=== PATIENT | female | born 1980 | race Caucasian/White ===

== ENCOUNTER 2018-04-20 12:40 | Day surgery (SDC) | payer OTHER ==
[~2018-04-20] VITALS: Ht 162.6 cm; Wt 93.5 kg
[~2018-04-20 12:40] MED LIST: BUPIVACAINE/PF-EPI 0.25% 1:200K ONE
[2018-04-20 13:41] LABS: HCG UR SG 1.026 (1.003-1.030)
[2018-04-20 14:10] VITALS: BP 123/84
[2018-04-20] MEDS ORDERED: BUDE10.2 INH (14:10)
[2018-04-20] MEDS ORDERED: SERT100T PO (14:10)
[2018-04-20] MEDS ORDERED: LACTATED RINGERS 1,000 ML IV SCH (14:21)
[2018-04-20] MEDS ORDERED: FENTANYL PF 100 MCG/2ML ONE ×3 (15:01→17:44)
[2018-04-20] MEDS ORDERED: MIDAZOLAM 1 MG/ML, 2ML ONE ×2 (15:01→17:58)
[2018-04-20] MEDS ORDERED: ONDANSETRON 2MG/ML, 2ML ONE (16:36)
[2018-04-20] MEDS ORDERED: DEXAMETHASONE 4 MG/ML, 1ML ONE (16:36)
[2018-04-20] MEDS ORDERED: LACTATED RINGERS 1,000 ML ONE (16:36)
[2018-04-20] MEDS ORDERED: PROPOFOL 10 MG/ML, 20ML ONE (16:36)
[2018-04-20] MEDS ORDERED: SUCCINYLCHOLINE 20 MG/ML, 10ML ONE (16:36)
[2018-04-20] MEDS ORDERED: KETOROLAC 30 MG/1 ML ONE (16:36)
[2018-04-20] MEDS ORDERED: METOCLOPRAMIDE 5 MG/ML, 2ML ONE (16:36)
[2018-04-20] MEDS: FENTANYL PF 100 MCG/2ML IV PRN ×4 (17:25→18:05)
[2018-04-20] MEDS ORDERED: OXYcodone 5 MG/5 ML ORAL.SOL UDC ONE (17:29)
[2018-04-20] MEDS ORDERED: HYDROmorphone 2 MG/ML, 1ML ONE ×2 (17:33→18:17)
[2018-04-20] MEDS: HYDROmorphone 1 MG/ML, 1ML IV PRN ×4 (17:35→18:00)
[2018-04-20] MEDS: MIDAZOLAM 1 MG/ML, 2ML IV PRN ×2 (18:00→18:27)
[2018-04-20] MEDS ORDERED: LABETALOL 5MG/ML, 20ML IV PRN (18:00)
[2018-04-20] MEDS ORDERED: OXYcodone 5 MG/5 ML ORAL.SOL UDC PO PRN (18:00)
[2018-04-20] MEDS ORDERED: MEPERIDINE/PF 25MG/0.5ML IVPush PRN (18:00)
[2018-04-20] MEDS ORDERED: ONDANSETRON 2MG/ML, 2ML IVPush PRN (18:00)
[2018-04-20] MEDS ORDERED: MEPERIDINE/PF 50 MG/ML ONE (18:17)
[2018-04-20 18:55] VITALS: BP 129/82
== END 2018-04-20 21:00 | disposition home or self-care (01) ==
LOC: OUT 12:40 → 4NOR 18:54 → OUT 21:00
PROVIDERS: ATTEND Obstetrics & Gynecology Female Pelvic Medicine and Reconstructive Surgery
DX: Z30.2 Encounter for sterilization (principal); N93.8 Other specified abnormal uterine and vaginal bleeding; N94.6 Dysmenorrhea, unspecified; F41.9 Anxiety disorder, unspecified; J45.909 Unspecified asthma, uncomplicated; F15.90 Other stimulant use, unspecified, uncomplicated; Z98.890 Other specified postprocedural states; Z87.442 Personal history of urinary calculi; Z79.899 Other long term (current) drug therapy; Z86.14 Personal history of Methicillin resistant Staphylococcus aureus infection
CPT/HCPCS: 58563; 58670; 81025; J0330; J1100; J1170; J1885; J2175; J2250; J2405; J2704; J2765; J3010; J7120; G0378